=== PATIENT | male | born 1945 | race Caucasian/White ===

== ENCOUNTER 2017-01-27 13:29 | Emergency (ER) | payer MEDICARE, OTHER ==
[2017-01-27 14:37] VITALS: BP 164/71
--- NOTE | 2017-01-27 14:58 | EDM.PDOC ---
ED HPI GENERAL MEDICAL PROBLEM - General Chief Complaint: General Stated Complaint: feeding tube plugged Time Seen by Provider: 01/27/17 13:40 Source of Information: Reports: [facility] Records, RN Notes Reviewed History Limitations: Reports: Combative/Threatening, Language Barrier, Uncooperative - History of Present Illness INITIAL COMMENTS - FREE TEXT/NARRATIVE: Patient brought from longterm because feeding tube was plugged at this time we went ahead and attempted to unplug it using both [employer] and meet tenderizer and a guidewire which were all unsuccessful at this time we decided to change the tube since we did not have the same feeding tube we went ahead and used a Hilliard catheter 16-gauge this was inserted without any complications and without much resistance Onset: Today, Sudden Duration: Hour(s): Location: Reports: Abdomen Quality: Reports: Ache Severity: Mild Improves with: Reports: None Worsens with: Reports: None Associated Symptoms: Reports: Confusion - Related Data Allergies Allergy/AdvReac Type Severity Reaction Status Date / Time cimetidine [From Tagamet] Allergy Cannot Verified 01/27/17 14:38 Remember ED ROS GENERAL - Review of Systems Review Of Systems: Unable To Obtain (We do know patient had traumatic brain injury secondary to accident unable to communicate further history is no) ED EXAM, GENERAL - Physical Exam Exam: See Below Exam Limited By: Uncooperative General Appearance: WD/WN, Mild Distress Ears: Normal External Exam, Normal Canal, Normal TMs, Other Ear Exam: Bilateral Ear: Auricle Normal, Canal Normal, TM normal Nose: Normal Inspection, Normal Mucosa, No Blood Throat/Mouth: Normal Inspection, Normal Lips, Normal Teeth, Normal Gums, Normal Oropharynx, Normal Voice, No Airway Compromise Head: Atraumatic, Normocephalic Neck: Normal Inspection, Supple, Non-Tender, Full Range of Motion Respiratory/Chest: No Respiratory Distress, Lungs Clear, Normal Breath Sounds, No Accessory Muscle Use, Chest Non-Tender Cardiovascular: Normal Peripheral Pulses, Regular Rate, Rhythm, No Edema, No Gallop, No JVD, No Murmur, No Rub GI/Abdominal: Normal Bowel Sounds, Soft, Non-Tender, No Organomegaly, No Distention, No Abnormal Bruit, No Mass, Other (Feeding tube clogged change feeding tube) (Male) Exam: Normal Prostate Extremities: Normal Inspection, Normal Range of Motion, Non-Tender, Normal Capillary Refill, No Pedal Edema Skin Exam: Warm, Dry, Intact, Normal Color, No Rash Course - Vital Signs Last Recorded V/S: Last Vital Signs Temp 98 F 01/27/17 14:07 Pulse 139 H 01/27/17 14:07 Resp 20 01/27/17 14:07 BP 164/71 H 01/27/17 14:07 Pulse Ox 99 01/27/17 14:07 Departure - Departure Time of Disposition: 14:59 Disposition: DC/Tfer to SNF 03 Condition: Good Clinical Impression: Visit for feeding tube placement - Discharge Information Forms: ED Department Discharge Care Plan Goals: Feeding tube changed under sterile conditions with out much difficulty patient will be sent back to [facility]
== END 2017-01-27 14:25 ==
LOC: LL.ED 13:29
DX: Z43.1 Encounter for attention to gastrostomy (principal)
CPT/HCPCS: 43760; 99282; 99284

== ENCOUNTER 2017-01-28 20:51 | Emergency (ER) | payer MEDICARE, OTHER ==
[2017-01-28 21:07] VITALS: BP 141/49
--- NOTE | 2017-01-28 21:30 | EDM.PDOC ---
ED HPI GENERAL MEDICAL PROBLEM - General Chief Complaint: General Stated Complaint: peg tube removal by pt Time Seen by Provider: 01/28/17 21:15 Source of Information: [facility]: [facility] History Limitations: Reports: Altered Mental Status, Combative/Threatening - History of Present Illness INITIAL COMMENTS - FREE TEXT/NARRATIVE: Patient brought to ER from [place] for feeding tube placement. Was seen here yesterday for same complaint. 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 Transferred to [place] two weeks ago from another long-term care facility. Patient does not communicate, nor does he track objects visually. He is combative at times. Likes to grab objects/hands and hold on, and has pulled out his feeding tube two days in a row. Has pending evaluation with surgery tomorrow to explore other options for feeding tube that is less likely to be pulled out. Yesterday tube was replaced with 16g Hliliard. [place] nursing staff unable to put that tube back in place tonight. No other changes noted/reported by staff. Patient is otherwise his usual self. - Related Data Allergies Allergy/AdvReac Type Severity Reaction Status Date / Time cimetidine [From Tagamet] Allergy Cannot Verified 01/28/17 21:07 Remember Home Meds: Home Meds Acetaminophen 160 mg PEGTUBE Q4H PRN 01/28/17 [History] Acetaminophen [Feverall] 650 mg RC Q4H PRN 01/28/17 [History] Aspirin 81 mg PEGTUBE DAILY 01/28/17 [History] Bisacodyl [Dulcolax] 10 mg RECTAL DAILY PRN 01/28/17 [History] Docusate Sodium [Enemeez] 283 mg RC DAILY PRN 01/28/17 [History] Enoxaparin [Lovenox] 30 mg SUBCUT DAILY 01/28/17 [History] Famotidine 20 mg PEGTUBE DAILY 01/28/17 [History] Folic Acid 1 mg PEGTUBE DAILY 01/28/17 [History] Hydrocodone/Acetaminophen [Hydrocodon-Acetaminophen 5-325] 1 tab PEGTUBE Q4H PRN 01/28/17 [History] Ipratropium/Albuterol Sulfate [Iprat-Albut 0.5-3(2.5) MG/3 ML] 3 ml IH Q4H PRN 01/28/17 [History] Loperamide [Imodium AD] 2 mg PEGTUBE ASDIRECTED PRN 01/28/17 [History] Mag Hydrox/Al Hydrox/Simeth [Mintox Suspension] 355 ml PEGTUBE Q4H PRN 01/28/17 [History] Magnesium Oxide 420 mg PEGTUBE BID 01/28/17 [History] Metoprolol Tartrate 50 mg PEGTUBE BID 01/28/17 [History] Nystatin 1 each TOP TID 01/28/17 [History] Pantoprazole Sodium [Protonix] 40 mg PEGTUBE DAILY 01/28/17 [History] Polyethylene Glycol 3350 [MiraLAX] 17 gm PEGTUBE DAILY PRN 01/28/17 [History] Thiamine HCl 100 mg PEGTUBE DAILY 01/28/17 [History] Valproic Acid [Depakene] 250 mg PEGTUBE TID 01/28/17 [History] atorvaSTATin [Lipitor] 40 mg PEGTUBE BEDTIME 01/28/17 [History] levETIRAcetam [Levetiracetam] 100 mg PEGTUBE BID 01/28/17 [History] Past Medical History Genitourinary History: Reports: Urinary Incontinence Neurological History: Reports: Head Trauma Psychiatric History: Reports: Aggressive/Hostile Behaviors, Other (See Below) Other Psychiatric History: traumatic brain injury Hematologic History: Reports: Anemia Immunologic History: Reports: None - Infectious Disease History Infectious Disease History: Reports: Other (See Below) Other Infectious Disease History: unknown - Past Surgical History GI Surgical History: Reports: Other (See Below) Other GI Surgeries/Procedures: GI tube Musculoskeletal Surgical History: Reports: Other (See Below) Other Musculoskeletal Surgeries/Procedures:: wheelchair bound, unable to ambulate Social & Family History - Tobacco Use Smoking Status *Q: Former Smoker Used Tobacco, but Quit: Yes Month Tobacco Last Used: 5 - Recreational Drug Use Recreational Drug Use: No ED ROS GENERAL - Review of Systems Review Of Systems: ROS reveals no pertinent complaints other than HPI. ED EXAM, GENERAL - Physical Exam Exam: See Below General Appearance: Other (Sitting in reclining wheel chair. Becomes more agitated when laid in more of a reclining position, however no signs of acute distress. ) Eye Exam: Bilateral Eye: PERRL Head: Atraumatic, Normocephalic Respiratory/Chest: No Respiratory Distress Cardiovascular: Regular Rate, Rhythm Peripheral Pulses: 2+: Radial (L), Radial (R) GI/Abdominal: Soft, No Distention Extremities: Normal Capillary Refill Neurological: Inattentive Skin Exam: Other (Some erythema noted around feeding tube site, upper abdomen. No vesicles/pustules. No drainage. ) ED GENERAL MEDICAL PROCEDURES - Additional/Other Procedure(s) Other (Free Text) Procedure(s): 16g Hilliard placed successfully back into position, patient tolerated this well overall. Taped to secure. Course - Vital Signs Last Recorded V/S: Last Vital Signs Temp 37.1 C 01/28/17 20:52 Pulse 75 01/28/17 20:52 Resp 18 01/28/17 20:52 BP 141/49 H 01/28/17 20:52 Pulse Ox 94 L 01/28/17 20:52 - Re-Assessments/Exams Free Text/Narrative Re-Assessment/Exam: 01/28/17 21:43 Feeding tube replaced using Hilliard. Patient will be seeing surgeon tomorrow to have additional options considered that may be more securely placed. Departure - Departure Time of Disposition: 21:29 Disposition: DC/Tfer to SNF 03 Condition: Good Clinical Impression: Visit for feeding tube placement - Discharge Information Referrals: Sheets-Mirtha Rodgers MD [Primary Care Provider] - Forms: ED Department Discharge Additional Instructions: Follow up with surgeon as scheduled. Follow up otherwise as needed.
== END 2017-01-28 21:45 ==
LOC: LL.ED 20:51
DX: Z43.1 Encounter for attention to gastrostomy (principal); Z86.2 Personal history of diseases of the blood and blood-forming organs and certain disorders involving the immune mechanism; Z98.890 Other specified postprocedural states; Z87.891 Personal history of nicotine dependence; Z79.82 Long term (current) use of aspirin; Z79.899 Other long term (current) drug therapy; Z88.8 Allergy status to other drugs, medicaments and biological substances
CPT/HCPCS: 43760; 99282; 99284

== ENCOUNTER 2017-03-02 21:31 | Emergency (ER) | payer MEDICARE, OTHER ==
[2017-03-02] MEDS ORDERED: Sodium Chloride 0.9% 10 ML Syringe FLUSH PRN (21:38)
[2017-03-02] MEDS ORDERED: LORazepam 2 MG/ML MDV IVPUSH ONE (21:39)
[2017-03-02] MEDS ORDERED: Sodium Chloride 0.9% 1,000 ML IV SCH (21:45)
[2017-03-02 22:07] LABS: CHLORIDE,CL 101 mmol/L (98-107); SODIUM,NA 138 mmol/L (136-145)
--- NOTE | 2017-03-02 22:07 | EDM.PDOC ---
ED HPI GENERAL MEDICAL PROBLEM - General Chief Complaint: Respiratory Problem Time Seen by Provider: 03/02/17 21:35 Source of Information: Reports: [facility] Records History Limitations: Reports: Altered Mental Status, Language Barrier, Physical Impairment - History of Present Illness INITIAL COMMENTS - FREE TEXT/NARRATIVE: [facility] with chief complaint of initially chest pain this resolve by the time that paramedics were there then complained of shortness of breath with his normal saturations dropping patient is status post traumatic brain injury appeared anxious at the time of arrival and uncomfortable Onset: Today Duration: Hour(s):, Intermittent Location: Reports: Chest Severity: Mild Improves with: Reports: None Worsens with: Reports: None Context: Reports: Sick Contact Associated Symptoms: Reports: Confusion - Related Data Allergies Allergy/AdvReac Type Severity Reaction Status Date / Time cimetidine [From Tagamet] Allergy Cannot Verified 03/02/17 22:09 Remember Home Meds: Home Meds Acetaminophen 160 mg PEGTUBE Q4H PRN 01/28/17 [History] Acetaminophen [Feverall] 650 mg RC Q4H PRN 01/28/17 [History] Aspirin 81 mg PEGTUBE DAILY 01/28/17 [History] Bisacodyl [Dulcolax] 10 mg RECTAL DAILY PRN 01/28/17 [History] Docusate Sodium [Enemeez] 283 mg RC DAILY PRN 01/28/17 [History] Hydrocodone/Acetaminophen [Hydrocodon-Acetaminophen 5-325] 1 tab PEGTUBE Q4H 01/06 [History] Ipratropium/Albuterol Sulfate [Iprat-Albut 0.5-3(2.5) MG/3 ML] 3 ml IH Q4H PRN 01/28/17 [History] Loperamide [Imodium AD] 2 mg PEGTUBE ASDIRECTED PRN 01/28/17 [History] Mag Hydrox/Al Hydrox/Simeth [Mintox Suspension] 355 ml PEGTUBE Q4H PRN 01/28/17 [History] Metoprolol Tartrate 50 mg PEGTUBE BID 01/28/17 [History] Nystatin 1 each TOP TID 01/28/17 [History] Pantoprazole Sodium [Protonix] 40 mg PEGTUBE DAILY 01/28/17 [History] Polyethylene Glycol 3350 [MiraLAX] 17 gm PEGTUBE DAILY PRN 01/28/17 [History] Valproic Acid [Depakene] 250 mg PEGTUBE TID 01/28/17 [History] atorvaSTATin [Lipitor] 40 mg PEGTUBE BEDTIME 01/28/17 [History] levETIRAcetam [Levetiracetam] 100 mg PEGTUBE BID 01/28/17 [History] Ranitidine [Zantac] 10 ml PO BID 03/02/17 [History] Warfarin [Coumadin] 2 mg PEGTUBE DAILY 03/02/17 [History] Past Medical History HEENT History: Reports: Hard of Hearing Cardiovascular History: Reports: CAD, High Cholesterol Respiratory History: Reports: COPD Gastrointestinal History: Reports: Colon Polyp, GERD Genitourinary History: Reports: Urinary Incontinence Other Genitourinary History: chronic kidney disease stage 3 Neurological History: Reports: Head Trauma Psychiatric History: Reports: Aggressive/Hostile Behaviors, Other (See Below) Other Psychiatric History: traumatic brain injury Hematologic History: Reports: Anemia Immunologic History: Reports: None Dermatologic History: Reports: Other (See Below) Other Dermatologic History: dermatitis - Infectious Disease History Infectious Disease History: Reports: Other (See Below) Other Infectious Disease History: unknown - Past Surgical History GI Surgical History: Reports: Other (See Below) Other GI Surgeries/Procedures: GI tube Musculoskeletal Surgical History: Reports: Other (See Below) Other Musculoskeletal Surgeries/Procedures:: wheelchair bound, unable to ambulate Social & Family History - Tobacco Use Smoking Status *Q: Former Smoker Used Tobacco, but Quit: Yes Month Tobacco Last Used: 5 - Recreational Drug Use Recreational Drug Use: No ED ROS GENERAL - Review of Systems Review Of Systems: See Below Constitutional: Reports: Weakness HEENT: Reports: No Symptoms Respiratory: Reports: Shortness of Breath Cardiovascular: Reports: Chest Pain (Result) Endocrine: Reports: No Symptoms GI/Abdominal: Reports: Other (2 feedings) : Reports: No Symptoms Musculoskeletal: Reports: No Symptoms, Muscle Stiffness, Other (Muscle spasm) Skin: Reports: No Symptoms Neurological: Reports: Confusion, Weakness ED EXAM, GENERAL - Physical Exam Exam: See Below Exam Limited By: Language Barrier General Appearance: Alert, WD/WN, Anxious, Mild Distress Ears: Normal External Exam, Normal Canal, Hearing Grossly Normal, Normal TMs Ear Exam: Bilateral Ear: Auricle Normal, Canal Normal, TM normal Nose: Normal Inspection, Normal Mucosa, No Blood Throat/Mouth: Normal Inspection, Normal Lips, Normal Teeth, Normal Gums, Normal Oropharynx, Normal Voice, No Airway Compromise Head: Atraumatic, Normocephalic Neck: Normal Inspection, Supple, Non-Tender, Full Range of Motion Respiratory/Chest: Respiratory Distress, Decreased Breath Sounds, Rales ( Bilateral lower lobes) Cardiovascular: Normal Peripheral Pulses, Regular Rate, Rhythm, No Edema, No Gallop, No JVD, No Murmur, No Rub GI/Abdominal: Normal Bowel Sounds, Soft, Non-Tender, No Organomegaly, No Distention, No Abnormal Bruit, No Mass, Other (To fed) (Male) Exam: Deferred Rectal (Males) Exam: Deferred Back Exam: Normal Inspection Extremities: Limited Range of Motion (Secondary to contraction) Neurological: Alert, Disoriented, Abnormal Gait Psychiatric: Normal Affect, Normal Mood Skin Exam: Warm, Dry, Intact, Normal Color, No Rash Course - Orders/Labs/Meds Orders: Active Orders 24 hr Category Date Time Status EKG Documentation Completion [RC] ASDIRECTED Care 03/02/17 21:36 Ordered CXR [Chest 2V] [CR] Stat Exams 03/02/17 21:36 Ordered CBC WITH AUTO DIFF [HEME] Stat Lab 03/02/17 21:36 Ordered CMP [COMPREHENSIVE METABOLIC PN,CMP] [CHEM] Stat Lab 03/02/17 21:35 Ordered CULTURE BLOOD [BC] Stat Lab 03/02/17 21:36 Ordered CULTURE BLOOD [BC] Stat Lab 03/02/17 21:36 Ordered TROPONIN I [CHEM] Stat Lab 03/02/17 Ordered Sodium Chloride 0.9% @ 150 MLS/HR (1000ml) Med 03/02/17 21:45 Ordered Sodium Chloride 0.9% [Normal Saline] 1,000 ml IV ASDIRECTED Sodium Chloride 0.9% [Saline Flush] Med 03/02/17 21:38 Ordered 10 ml FLUSH ASDIRECTED PRN Blood Culture x2 Reflex Set [OM.PC] Stat Oth 03/02/17 21:36 Ordered Saline Lock Insert [OM.PC] Routine Oth 03/02/17 21:38 Ordered EKG 12 Lead [EK] Stat Ther 03/02/17 21:36 Ordered Medication Orders Sodium Chloride (Normal Saline) 1,000 mls @ 150 mls/hr IV ASDIRECTED ANTONIA Last Admin: 03/02/17 21:50 Dose: 150 mls/hr Sodium Chloride (Saline Flush) 10 ml FLUSH ASDIRECTED PRN PRN Reason: Keep Vein Open Last Admin: 03/02/17 21:48 Dose: 10 ml Meds: Medications Generic Name Dose Route Start Last Admin Trade Name Freq PRN Reason Stop Dose Admin Sodium Chloride 1,000 mls @ 150 mls/hr 03/02/17 21:45 03/02/17 21:50 Normal Saline IV 150 mls/hr ASDIRECTED ANTONIA Administration Sodium Chloride 10 ml 03/02/17 21:38 03/02/17 21:48 Saline Flush FLUSH 10 ml ASDIRECTED PRN Administration Keep Vein Open Discontinued Medications Generic Name Dose Route Start Last Admin Trade Name Freq PRN Reason Stop Dose Admin Lorazepam 1 mg 03/02/17 21:39 03/02/17 21:47 Ativan IVPUSH 03/02/17 21:40 1 mg ONETIME ONE Administration Departure - Departure Time of Disposition: 22:38 Disposition: DC/Tfer to [facility] 63 Condition: Fair Clinical Impression: Pneumonia - Discharge Information Forms: ED Department Discharge Care Plan Goals: Patient will be sent back to the [facility] Patient will be sent home on Levaquin 500 once a day plus Flagyl 500 mg 3 times a day for 10 days patient is to continue duo nebs every 4 hours and oxygen if saturations below 90% - My Orders Last 24 Hours: My Active Orders 03/02/17 TROPONIN I [CHEM] Stat 03/02/17 21:35 CMP [COMPREHENSIVE METABOLIC PN,CMP] [CHEM] Stat 03/02/17 21:36 EKG Documentation Completion [RC] ASDIRECTED CXR [Chest 2V] [CR] Stat CBC WITH AUTO DIFF [HEME] Stat CULTURE BLOOD [BC] Stat CULTURE BLOOD [BC] Stat Blood Culture x2 Reflex Set [OM.PC] Stat EKG 12 Lead [EK] Stat 03/02/17 21:38 Sodium Chloride 0.9% [Saline Flush] 10 ml FLUSH ASDIRECTED PRN Saline Lock Insert [OM.PC] Routine 03/02/17 21:45 Sodium Chloride 0.9% @ 150 MLS/HR (1000ml) Sodium Chloride 0.9% [Normal Saline] 1,000 ml IV ASDIRECTED - Assessment/Plan Last 24 Hours: My Active Orders 03/02/17 TROPONIN I [CHEM] Stat 03/02/17 21:35 CMP [COMPREHENSIVE METABOLIC PN,CMP] [CHEM] Stat 03/02/17 21:36 EKG Documentation Completion [RC] ASDIRECTED CXR [Chest 2V] [CR] Stat CBC WITH AUTO DIFF [HEME] Stat CULTURE BLOOD [BC] Stat CULTURE BLOOD [BC] Stat Blood Culture x2 Reflex Set [OM.PC] Stat EKG 12 Lead [EK] Stat 03/02/17 21:38 Sodium Chloride 0.9% [Saline Flush] 10 ml FLUSH ASDIRECTED PRN Saline Lock Insert [OM.PC] Routine 03/02/17 21:45 Sodium Chloride 0.9% @ 150 MLS/HR (1000ml) Sodium Chloride 0.9% [Normal Saline] 1,000 ml IV ASDIRECTED
[2017-03-02] MEDS ORDERED: Albuterol/Ipratropium 3.0-0.5 MG/3 ML Neb Soln NEB ONE (22:08)
[2017-03-02] MEDS ORDERED: Levofloxacin 500 MG Tab PO ONE (22:40)
[2017-03-02] MEDS ORDERED: Levofloxacin/Dextrose 5%-Water 500 MG in Premix Bag 1 BAG IV SCH (22:45)
[2017-03-03 00:09] VITALS: BP 134/72
== END 2017-03-03 00:33 ==
LOC: LL.ED 21:31
DX: J18.9 Pneumonia, unspecified organism (principal); Z87.891 Personal history of nicotine dependence
CPT/HCPCS: 36415; 71010; 80053; 84484; 85025; 87040; 93005; 94640; 96361; 96365; 96375; 99285; A9270; J1956; J2060; J7030; J7050

== ENCOUNTER 2017-03-18 16:48 | Emergency (ER) | payer MEDICARE, OTHER ==
--- NOTE | 2017-03-18 17:46 | EDM.PDOC ---
ED HPI GENERAL MEDICAL PROBLEM - General Chief Complaint: General Stated Complaint: peg tube reinsertion Time Seen by Provider: 03/18/17 17:00 Source of Information: [facility]: [facility] History Limitations: Reports: Altered Mental Status - History of Present Illness INITIAL COMMENTS - FREE TEXT/NARRATIVE: Patient brought here for feeding tube re-insertion. Resident of [place] home. History of TBI. Unable to take PO intake. Has been here before for same complaint. Seen today at clinic for evaluation of respiratory rhonchi. No change in that complaint. - Related Data Allergies Allergy/AdvReac Type Severity Reaction Status Date / Time cimetidine [From Tagamet] Allergy Cannot Verified 03/02/17 22:09 Remember Home Meds: Home Meds Acetaminophen 160 mg PEGTUBE Q4H PRN 01/28/17 [History] Acetaminophen [Feverall] 650 mg RC Q4H PRN 01/28/17 [History] Aspirin 81 mg PEGTUBE DAILY 01/28/17 [History] Bisacodyl [Dulcolax] 10 mg RECTAL DAILY PRN 01/28/17 [History] Docusate Sodium [Enemeez] 283 mg RC DAILY PRN 01/28/17 [History] Hydrocodone/Acetaminophen [Hydrocodon-Acetaminophen 5-325] 1 tab PEGTUBE Q4H 01/06 [History] Ipratropium/Albuterol Sulfate [Iprat-Albut 0.5-3(2.5) MG/3 ML] 3 ml IH Q4H PRN 01/28/17 [History] Loperamide [Imodium AD] 2 mg PEGTUBE ASDIRECTED PRN 01/28/17 [History] Mag Hydrox/Al Hydrox/Simeth [Mintox Suspension] 30 ml PEGTUBE Q4H PRN 01/28/17 [ History] Metoprolol Tartrate 50 mg PEGTUBE BID 01/28/17 [History] Nystatin 1 each TOP TID PRN 01/28/17 [History] Pantoprazole Sodium [Protonix] 40 mg PEGTUBE DAILY 01/28/17 [History] Polyethylene Glycol 3350 [MiraLAX] 17 gm PEGTUBE DAILY PRN 01/28/17 [History] Valproic Acid [Depakene] 250 mg PEGTUBE TID 01/28/17 [History] atorvaSTATin [Lipitor] 40 mg PEGTUBE BEDTIME 01/28/17 [History] levETIRAcetam [Levetiracetam] 5 ml PEGTUBE BID 01/28/17 [History] Ranitidine [Zantac] 10 ml PO BID 03/02/17 [History] Warfarin [Coumadin] 2 mg PEGTUBE DAILY 03/02/17 [History] Past Medical History HEENT History: Reports: Hard of Hearing Cardiovascular History: Reports: CAD, High Cholesterol Respiratory History: Reports: COPD Gastrointestinal History: Reports: Colon Polyp, GERD Genitourinary History: Reports: Urinary Incontinence Other Genitourinary History: chronic kidney disease stage 3 Neurological History: Reports: Brain Injury, CVA, Head Trauma Psychiatric History: Reports: Aggressive/Hostile Behaviors, Other (See Below) Other Psychiatric History: traumatic brain injury Hematologic History: Reports: Anemia, Iron Deficiency Immunologic History: Reports: None Dermatologic History: Reports: Other (See Below) Other Dermatologic History: dermatitis - Infectious Disease History Infectious Disease History: Reports: Other (See Below) Other Infectious Disease History: unknown - Past Surgical History GI Surgical History: Reports: Other (See Below) Other GI Surgeries/Procedures: GI tube Musculoskeletal Surgical History: Reports: Other (See Below) Other Musculoskeletal Surgeries/Procedures:: wheelchair bound, unable to ambulate Social & Family History - Tobacco Use Smoking Status *Q: Former Smoker Used Tobacco, but Quit: Yes Month Tobacco Last Used: 5 - Recreational Drug Use Recreational Drug Use: No ED ROS GENERAL - Review of Systems Review Of Systems: ROS reveals no pertinent complaints other than HPI. ED EXAM, GENERAL - Physical Exam Exam: Not Obtained (Patient is in no acute distress, no acute changes. Here for feeding tube re-insertion. No indication for full exam at this time) General Appearance: No Apparent Distress Skin Exam: Other (No sign of infection noted around feeding tube insertion site. Abdomen soft. ) Course - Re-Assessments/Exams Free Text/Narrative Re-Assessment/Exam: 16g feeding tube successfully reinserted and appeared to be functioning well. Patient to return to [place] home. Uncertain what plan patient's clinic recommended after evaluating him this morning for the coarse breath sounds. Order added for PRN O2 via [place]. They are to follow up as needed with primary or ER if patient worsens. Departure - Departure Time of Disposition: 17:30 Disposition: DC/Tfer to SNF 03 Condition: Good Clinical Impression: Visit for feeding tube placement - Discharge Information Forms: ED Department Discharge Additional Instructions: Follow up as needed. If larger feeding tube is required discuss with primary provide and obtain referral for placement as needed. PRN O2 order to keep sats greater than 91%. Follow up for respiratory complaint that was evaluated by clinic as needed.
[2017-03-18 18:25] VITALS: BP 128/71
== END 2017-03-18 17:50 ==
LOC: LL.ED 16:48
DX: K94.23 Gastrostomy malfunction (principal); N18.3 Chronic kidney disease, stage 3 (moderate); E78.00 Pure hypercholesterolemia, unspecified; Z88.8 Allergy status to other drugs, medicaments and biological substances; Z79.82 Long term (current) use of aspirin; Z79.899 Other long term (current) drug therapy; Z79.01 Long term (current) use of anticoagulants; Z87.891 Personal history of nicotine dependence; J44.9 Chronic obstructive pulmonary disease, unspecified; R09.02 Hypoxemia
CPT/HCPCS: 43760; 65205; 71020; 99283; 99284

== ENCOUNTER 2019-02-15 13:31 | Emergency (ER) | payer MEDICARE, OTHER ==
[2019-02-15] MEDS ORDERED: Sodium Chloride 0.9% 10 ML Syringe FLUSH PRN (13:51)
[2019-02-15] MEDS ORDERED: Budesonide 0.5 MG/2 ML Neb Susp NEB ONE (13:51)
[2019-02-15] MEDS ORDERED: Albuterol/Ipratropium 3.0-0.5 MG/3 ML Neb Soln NEB ONE (13:51)
--- NOTE | 2019-02-15 13:51 | EDM.PDOC ---
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 Hypoalbuminemia SNOMED Code(s): 796110138 Code(s): E88.09 - OTH DISORDERS OF PLASMA-PROTEIN METABOLISM, NEC Status: Chronic Priority: Medium Current Visit: Yes Annotation/Comment:: Known history of hypoproteinemia. Consider increase protein supplementation and his gastric tube feedings. - Problem List Review Problem List Initiated/Reviewed/Updated: Yes - My Orders Last 24 Hours: My Active Orders 02/15/19 13:51 Cardiac Monitoring [RC] CONTINUOUS Communication Order [RC] ROUTINE Oxygen Therapy, ED [RC] PRN Pulse Oximetry [RC] CONTINUOUS Up With Assistance [RC] ASDIRECTED Chest 1V Frontal [CR] Stat CULTURE SPUTUM + SMEAR [RM] Urgent CULTURE STREP A CONFIRMATION [RM] Stat STREP SCRN A RAPID W CULT CONF [RM] Stat Sodium Chloride 0.9% [Saline Flush] 10 ml FLUSH ASDIRECTED PRN Blood Culture x2 Reflex Set [OM.PC] Stat Obtain Past Medical Record [OM.PC] Stat Peripheral IV Insertion Adult [OM.PC] Stat Resuscitation Status Routine 02/15/19 13:52 EKG Documentation Completion [RC] ASDIRECTED Peripheral IV Care [RC] . DIRECTED 02/15/19 14:20 CULTURE BLOOD [BC] Stat 02/15/19 14:36 CULTURE BLOOD [BC] Stat 02/15/19 Breakfast Nothing Per Oral Diet [DIET] - Assessment/Plan Last 24 Hours: My Active Orders 02/15/19 13:51 Cardiac Monitoring [RC] CONTINUOUS Communication Order [RC] ROUTINE Oxygen Therapy, ED [RC] PRN Pulse Oximetry [RC] CONTINUOUS Up With Assistance [RC] ASDIRECTED Chest 1V Frontal [CR] Stat CULTURE SPUTUM + SMEAR [RM] Urgent CULTURE STREP A CONFIRMATION [RM] Stat STREP SCRN A RAPID W CULT CONF [RM] Stat Sodium Chloride 0.9% [Saline Flush] 10 ml FLUSH ASDIRECTED PRN Blood Culture x2 Reflex Set [OM.PC] Stat Obtain Past Medical Record [OM.PC] Stat Peripheral IV Insertion Adult [OM.PC] Stat Resuscitation Status Routine 02/15/19 13:52 EKG Documentation Completion [RC] ASDIRECTED Peripheral IV Care [RC] . DIRECTED 02/15/19 14:20 CULTURE BLOOD [BC] Stat 02/15/19 14:36 CULTURE BLOOD [BC] Stat 02/15/19 Breakfast Nothing Per Oral Diet [DIET] Assessment:: As above Plan: As above. Extensive precautions were given to the patient's , who is in agreement with the treatment plan. Ambulance transfer with director of strategic partnerships accompaniment.
[2019-02-15] MEDS ORDERED: cefTRIAXone 1 GM in Sodium Chloride 0.9% 100 ML IV ONE (14:58)
[2019-02-15] MEDS ORDERED: metroNIDAZOLE/Normal Saline 500 MG in Premix Bag 1 BAG IV ONE (14:58)
[2019-02-15 15:05] LABS: CHLORIDE,CL 103 mmol/L (98-107); SODIUM,NA 139 mmol/L (136-145)
[2019-02-15] MEDS ORDERED: Furosemide 40 MG/4 ML VIAL IVPUSH ONE (15:23)
[2019-02-15 16:36] VITALS: BP 126/68; PULSE 78
== END 2019-02-15 17:20 ==
LOC: LL.ED 13:31
DX: J44.0 Chronic obstructive pulmonary disease with (acute) lower respiratory infection (principal); J69.0 Pneumonitis due to inhalation of food and vomit; I25.10 Atherosclerotic heart disease of native coronary artery without angina pectoris; E11.22 Type 2 diabetes mellitus with diabetic chronic kidney disease; I13.0 Hypertensive heart and chronic kidney disease with heart failure and stage 1 through stage 4 chronic kidney disease, or unspecified chronic kidney disease; N18.3 Chronic kidney disease, stage 3 (moderate); I50.9 Heart failure, unspecified; D63.1 Anemia in chronic kidney disease; I63.89 Other cerebral infarction; E88.09 Other disorders of plasma-protein metabolism, not elsewhere classified; R79.89 Other specified abnormal findings of blood chemistry; K21.9 Gastro-esophageal reflux disease without esophagitis; G40.909 Epilepsy, unspecified, not intractable, without status epilepticus; E11.51 Type 2 diabetes mellitus with diabetic peripheral angiopathy without gangrene; Z79.01 Long term (current) use of anticoagulants; Z88.8 Allergy status to other drugs, medicaments and biological substances; Z95.5 Presence of coronary angioplasty implant and graft; Z99.81 Dependence on supplemental oxygen; Z79.899 Other long term (current) drug therapy; Z79.82 Long term (current) use of aspirin; Z79.51 Long term (current) use of inhaled steroids; Z79.52 Long term (current) use of systemic steroids; Z95.1 Presence of aortocoronary bypass graft; Z87.891 Personal history of nicotine dependence
CPT/HCPCS: 36415; 71045; 80053; 82550; 82553; 83605; 83735; 83880; 84443; 84484; 85025; 85610; 85730; 87040; 87081; 87430; 87804; 93005; 93010; 94640; 96365; 96367; 96375; 99285; 99285-25; J0696; J1940; J3490; J7050; J7620-GY

== ENCOUNTER 2020-12-26 04:45 | Emergency (ER) | payer MEDICARE, OTHER ==
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
[2020-12-26 06:36] LABS: CHLORIDE,CL 103 mmol/L (98-107); SODIUM,NA 140 mmol/L (136-145)
[2020-12-26 06:37] LABS: ANION GAP 11.5 meq/L (7-15)
[2020-12-26] MEDS: Sodium Chloride 0.9% 1,000 ML IV ONE (07:24)
[2020-12-26] MEDS: Piperacillin/Tazobactam 4.5 GM in Sodium Chloride 0.9% 100 ML IV ONE (07:36)
[2020-12-26] MEDS: Sodium Chloride 0.9% 10 ML Syringe FLUSH PRN (11:40)
[2020-12-26] MEDS: methylPREDNISolone Sodium Succinate 125 MG/2 ML SDV IVPUSH ONE (11:40)
[2020-12-26 15:48] VITALS: BP 126/49; PULSE 92
== END 2020-12-26 12:50 ==
LOC: LL.ED 04:45
DX: J44.1 Chronic obstructive pulmonary disease with (acute) exacerbation (principal); R13.10 Dysphagia, unspecified; T17.900A Unspecified foreign body in respiratory tract, part unspecified causing asphyxiation, initial encounter; I25.10 Atherosclerotic heart disease of native coronary artery without angina pectoris; E78.00 Pure hypercholesterolemia, unspecified; I10 Essential (primary) hypertension; K21.9 Gastro-esophageal reflux disease without esophagitis; Z95.5 Presence of coronary angioplasty implant and graft; Z86.73 Personal history of transient ischemic attack (TIA), and cerebral infarction without residual deficits; Z88.8 Allergy status to other drugs, medicaments and biological substances; Z79.82 Long term (current) use of aspirin; Z79.899 Other long term (current) drug therapy; Z20.822 Contact with and (suspected) exposure to COVID-19
CPT/HCPCS: 36415; 71045; 80053; 80164; 80177; 83605; 83880; 84484; 85025; 85610; 86140; 87040; 87426; 93005; 93010; 96365; 96367; 96375; 99284; 99285-25; J2543; J2930; J3370; J7030; J7050; U0002

== ENCOUNTER 2021-02-19 10:30 | Emergency (ER) | payer MEDICARE, OTHER ==
[2021-02-19] MEDS ORDERED: Albuterol/Ipratropium 3.0-0.5 MG/3 ML Neb Soln NEB ONE ×2 (10:36→14:34)
[2021-02-19] MEDS ORDERED: Furosemide 40 MG/4 ML VIAL IVPUSH ONE (11:19)
[2021-02-19] MEDS ORDERED: methylPREDNISolone Sodium Succinate 125 MG/2 ML SDV IVPUSH ONE (11:20)
[2021-02-19] MEDS ORDERED: Sodium Chloride 0.9% 10 ML Syringe FLUSH PRN (11:23)
[2021-02-19 11:32] LABS: CHLORIDE,CL 101 mmol/L (98-107); SODIUM,NA 138 mmol/L (136-145)
[2021-02-19 11:34] LABS: ANION GAP 13.5 meq/L (7-15)
[2021-02-19] MEDS ORDERED: cefTRIAXone 1 GM in Sodium Chloride 0.9% 100 ML IV ONE (12:10)
[2021-02-19] MEDS ORDERED: Sodium Chloride 0.9% 500 ML IV SCH (12:15)
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
[2021-02-19] MEDS ORDERED: cefTRIAXone 1 GM Vial IM ONE (13:34)
[2021-02-19 20:59] VITALS: BP 94/68; PULSE 108
== END 2021-02-19 14:45 ==
LOC: LL.ED 10:30
DX: A41.9 Sepsis, unspecified organism (principal); N39.0 Urinary tract infection, site not specified; R00.0 Tachycardia, unspecified; I25.10 Atherosclerotic heart disease of native coronary artery without angina pectoris; E78.00 Pure hypercholesterolemia, unspecified; J44.9 Chronic obstructive pulmonary disease, unspecified; K21.9 Gastro-esophageal reflux disease without esophagitis; I12.9 Hypertensive chronic kidney disease with stage 1 through stage 4 chronic kidney disease, or unspecified chronic kidney disease; E11.22 Type 2 diabetes mellitus with diabetic chronic kidney disease; N18.30 Chronic kidney disease, stage 3 unspecified; R56.9 Unspecified convulsions; Z88.8 Allergy status to other drugs, medicaments and biological substances; Z79.899 Other long term (current) drug therapy
CPT/HCPCS: 36415; 71045; 80053; 81001; 83605; 83735; 83880; 84484; 85025; 87040; 87077; 87086; 87088; 87186; 87426; 93005; 93010; 94640; 96365; 96372; 96375; 99284; 99284-25; J0696; J1940; J2930; J3360; J7040; J7620-GY